=== PATIENT | male | born 1940 | race Caucasian/White ===

== ENCOUNTER → 2017-04-09 | Day surgery (SDC) | payer OTHER ==
[~2017-04-09] VITALS: Ht 177.8 cm; Wt 79.9 kg
[2017-04-09 13:37] LABS: PROTHROMBIN TIME 12.8 SECONDS (11.7-14.0); PTT 25.1 SECONDS (23.2-31.4)
[2017-04-09 13:39] LABS: CREATININE 0.8 mg/dL (0.7-1.2); POTASSIUM 3.6 mmol/L (3.5-5.1)
== END | disposition home or self-care (01) ==
LOC: FAS 12:49
PROVIDERS: Anesthesiology
DX: L72.0 Epidermal cyst (principal); I10 Essential (primary) hypertension; I25.2 Old myocardial infarction; I25.10 Atherosclerotic heart disease of native coronary artery without angina pectoris; M19.90 Unspecified osteoarthritis, unspecified site; Z88.8 Allergy status to other drugs, medicaments and biological substances; Z88.5 Allergy status to narcotic agent; Z95.1 Presence of aortocoronary bypass graft; Z85.828 Personal history of other malignant neoplasm of skin; Z82.49 Family history of ischemic heart disease and other diseases of the circulatory system; Z83.49 Family history of other endocrine, nutritional and metabolic diseases; Z79.02 Long term (current) use of antithrombotics/antiplatelets; Z79.2 Long term (current) use of antibiotics; Z79.899 Other long term (current) drug therapy; Z98.890 Other specified postprocedural states
CPT/HCPCS: 36415; 80048; 85610; 85730; 88304; 93005; J0690; J2704; J3010

== ENCOUNTER 2021-11-02 09:14 | Emergency (ER) | payer OTHER ==
[~2021-11-02] VITALS: Ht 177.8 cm; Wt 83.9 kg
[2021-11-02 10:18] LABS: ALBUMIN 3.1 g/dL (3.4-5.0); BUN/CREAT RATIO (CALC) 22.9 RATIO; CREATININE 0.83 mg/dL (0.67-1.17); GLOBULIN (CALCULATION) 3.9 g/dL; POTASSIUM 3.7 mmol/L (3.5-5.1)
[2021-11-02 10:39] LABS: INFLUENZA A NAA NEGATIVE (NEGATIVE)
[2021-11-02 10:46] LABS: CORONAVIRUS 2019 SARS-COV-2 POSITIVE (NEGATIVE)
[2021-11-02 11:03] LABS: BASOPHIL 0.1 % (0-2); EOSINOPHIL 0.1 % (0-7); HCT 44.3 % (42.0-52.0); LYMPHOCYTE 9.6 % (15-48); MCH 29.3 pg (25.0-31.0); MCHC 33.9 g/dL (32.0-36.0); MCV 86.5 fL (78.0-100.0); MONOCYTE 8.5 % (0-12); MPV 11.3 fL (6.0-9.5); NEUTROPHIL 80.5 % (41-80); NRBC 0; PLT 196 K/uL (150-400); RBC 5.12 M/uL (4.70-6.00); RDW 13.2 % (11.5-14.0); WBC 8.5 K/uL (4.0-10.5)
[2021-11-02 11:30] LABS: C-REACTIVE PROTEIN 11.6 mg/dL (<=0.90)
[2021-11-03] MEDS ORDERED: VENTOLIN HFA18 GM INH (09:53)
[2021-11-03] MEDS ORDERED: ELIQUIS5 MG PO (09:53)
[2021-11-03] MEDS ORDERED: ZOFRAN4 M1 PO (09:53)
== END 2021-11-03 11:20 | disposition home or self-care (01) ==
LOC: FER 09:14
PROVIDERS: Emergency Medicine
DX: U07.1 COVID-19 (principal); I26.99 Other pulmonary embolism without acute cor pulmonale; I10 Essential (primary) hypertension; I25.10 Atherosclerotic heart disease of native coronary artery without angina pectoris; Z23 Encounter for immunization; Z88.2 Allergy status to sulfonamides
CPT/HCPCS: 36415; 71045; 71275; 80053; 84145; 84484; 85025; 85379; 86140; 93005; 96372; J1650; J1885; J2405; J7030; M0243; Q0244; Q9967; U0002